=== PATIENT | male | born 1970 | race Caucasian/White ===

== ENCOUNTER 2017-03-20 14:53 | Emergency (ER) | payer BC, OTHER ==
[~2017-03-20] VITALS: Ht 182.9 cm; Wt 95.0 kg
[2017-03-20 14:56] VITALS: BP 148/89; PULSE 74; RESP 14; TEMP 98.4; O2SAT 99
--- NOTE | 2017-03-20 15:29 | PD ---
HPI Chief Complaint: Musculoskeletal Complaint Time Seen by Provider: 15:29 Travel History International Travel<30 days: No Contact w/Intl Traveler<30days: No Traveled to known affect area: No History of Present Illness HPI 46-year-old male presents emergency Department with the pain and stiffness to the left medial knee. Patient states he's had trouble with the left knee for quite some time, but played bowling last evening with sudden onset pain in the left medial aspect of the knee which has gotten progressively worse through the night. Patient has had arthroscopic surgery on the right knee by Dr. Chin in the past and has an appointment with him in 2 weeks. Patient is here today because the pain is excruciating and not improved with meloxicam which she started home. Patient is able to bear weight but has difficulty bending the knee due to the pain in this area. There is no significant effusion. He has no numbness, tingling, or other symptoms. He has no known drug allergies. [facility] Social History Alcohol Use: Yes Tobacco Use: No Substance Use: No Allergies-Medications (Allergen,Severity, Reaction): Coded Allergies: No Known Allergies (Unverified , 03/20/17) Review of Systems Except as stated in HPI: all other systems reviewed are Neg General / Constitutional: No: Fever Eyes: No: Visual changes HENT: No: Headaches Cardiovascular: No: Chest Pain or Discomfort Respiratory: No: Shortness of Breath Gastrointestinal: No: Abdominal Pain Genitourinary: No: Dysuria Musculoskeletal: Positive: Arthralgias, Limited ROM, Pain Skin: No Rash Neurologic: No: Weakness Psychiatric: No: Depression Endocrine: No: Polydipsia Hematologic/Lymphatic: No: Easy Bruising Physical Exam Narrative GENERAL: Patient is in mild to moderate distress. SKIN: Warm and dry. Normal color. Normal turgor. No rash. No erythema. No signs of trauma. HEAD: Atraumatic. Normocephalic. EYES: Pupils equal and round. No scleral icterus. No injection or drainage. ENT: No nasal bleeding or discharge. Mucous membranes pink and moist. Pharynx is clear. Airway is patent. NECK: Trachea midline. Supple. CARDIOVASCULAR: Regular rate and rhythm. RESPIRATORY: No accessory muscle use. Clear to auscultation. Breath sounds equal bilaterally. MUSCULOSKELETAL: Extremities without clubbing, cyanosis, or edema. No obvious deformities. Patient has no obvious effusion to the left knee. Patient has pain along the medial aspect of the knee without obvious laxity with negative drawer test. Pain is worse with varus and valgus stress however. Strength is normal. NEUROLOGICAL: Awake and alert. No obvious cranial nerve deficits. Motor grossly within normal limits. Five out of 5 muscle strength in the arms and legs. Normal speech. PSYCHIATRIC: Appropriate mood and affect; insight and judgment normal. Data Data Last Documented VS Vital Signs Date Time Temp Pulse Resp B/P Pulse Ox O2 Delivery O2 Flow Rate FiO2 03/20/17 14:56 98.4 74 14 148/89 99 MDM Medical Decision Making Medical Screen Exam Complete: Yes Emergency Medical Condition: Yes Differential Diagnosis Left knee sprain. Left knee tendinitis. Possible cartilage injury. Narrative Course Patient's medically stable at time of exam. Radiographic imaging at this time was not felt warranted based on the patient's history and physical. Patient is given Toradol 60 mg IM. Patient is placed in a knee immobilizer and crutches as discussed. Patient is given ibuprofen 600 mg 4 times a day #40. Patient is given Tylenol 500 mg 2 tabs every 6 hours when necessary #60. Patient is to ice this frequently as possible. Patient follow with Dr. Chin's office in 2 weeks or sooner as discussed. Patient can return to department worsening symptoms if necessary. Diagnosis Primary Impression: Sprain of medial collateral ligament of left knee, initial encounter Referrals: Yazan Ruth MD 2 weeks Patient Instructions: Crutch Instructions (ED), General Instructions, Knee Immobilizer (ED), Knee Sprain (ED) Additional Instructions: Radiographic imaging at this time was not felt warranted based on the patient's history and physical. Patient is given Toradol 60 mg IM. Patient is placed in a knee immobilizer and crutches as discussed. Patient is given ibuprofen 600 mg 4 times a day #40. Patient is given Tylenol 500 mg 2 tabs every 6 hours when necessary #60. Patient is to ice this frequently as possible. Patient follow with Dr. Chin's office in 2 weeks or sooner as discussed. Patient can return to department worsening symptoms if necessary. Med/Other Pt SpecificInfo: Prescription(s) given Disposition: 01 DISCHARGE HOME Condition: Stable Jarek Hollis Mar 20, 2017 15:29
[2017-03-20] MEDS ORDERED: KETOROLAC TROMETHAMINE 60 MG/2 ML (IM) VIAL IM ONE (15:45)
[2017-03-20] MEDS ORDERED: NON-500T13 PO (15:47)
[2017-03-20] MEDS ORDERED: IBUP-232 PO (15:47)
== END 2017-03-20 16:00 | disposition home or self-care (01) ==
LOC: NEPD 14:53
DX: S83.412A Sprain of medial collateral ligament of left knee, initial encounter (principal); X58.XXXA Exposure to other specified factors, initial encounter; Y93.54 Activity, bowling; Y92.39 Other specified sports and athletic area as the place of occurrence of the external cause
CPT/HCPCS: 99283; E0113; J1885; L1830